=== PATIENT | male | born 1995 | race African-American/Black ===

== ENCOUNTER 2017-02-21 22:58 | Emergency (ER) | payer MEDICAID, OTHER ==
[~2017-02-21] VITALS: Ht 195.6 cm; Wt 85.0 kg
[2017-02-21 23:02] VITALS: BP 138/89; PULSE 51; RESP 14; TEMP 97.4; O2SAT 100
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
[2017-02-22] MEDS ORDERED: IBUPROFEN 800 MG TAB PO ONE (01:00)
[2017-02-22] MEDS ORDERED: TETANUS/DIPHTHERIA TOXOID ADULT 0.5 ML VIAL IM ONE (01:00)
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
== END 2017-02-22 02:32 | disposition home or self-care (01) ==
LOC: NEPK 22:58
DX: S90.31XA Contusion of right foot, initial encounter (principal); V09.09XA Pedestrian injured in nontraffic accident involving other motor vehicles, initial encounter; Y92.831 Amusement park as the place of occurrence of the external cause; Y99.0 Civilian activity done for income or pay; Z23 Encounter for immunization
CPT/HCPCS: 73630; 90471; 90714; 99283; L3260